=== PATIENT | female | born 1970 | race African-American/Black ===

== ENCOUNTER 2018-04-10 06:49 | Emergency (ER) | payer BC ==
[~2018-04-10] VITALS: Ht 172.7 cm; Wt 77.1 kg
[~2018-04-10 06:49] MED LIST: ALLEGRA-D 12 H1 EACH PO; ANTI-ITCH56 GM TP; CYCLOBENZAPRINE10 MG PO; IBUPROFEN 600600 M1 PO; IBUPROFEN 800800 MG PO; NAPROSYN500 MG PO; NOHOMEMEDICATIONS; NORCO 5-325 TA1 EACH PO; PHENTERMINE H37.5 M1 PO; PRILOSEC 20 MG20 MG PO; PROBIOTIC1 EAC1 PO; VALIUM2 MG PO; ZPAK PO
[2018-04-10 06:51] VITALS: BP 115/68
== END 2018-04-10 07:54 | disposition home or self-care (01) ==
LOC: ER 06:49
DX: S61.304A Unspecified open wound of right ring finger with damage to nail, initial encounter (principal); Z90.710 Acquired absence of both cervix and uterus; W23.1XXA Caught, crushed, jammed, or pinched between stationary objects, initial encounter

== ENCOUNTER 2019-07-07 23:18 | Emergency (ER) | payer BC ==
[~2019-07-07] VITALS: Ht 167.6 cm; Wt 71.7 kg
[2019-07-07] MEDS ORDERED: NOHOMEMEDICATIONS (23:32)
[2019-07-08] MEDS ORDERED: NAPROSYN500 MG PO (00:36)
[2019-07-08] MEDS ORDERED: ULTRAM 50MG TAB50 MG PO (00:36)
[2019-07-08] MEDS ORDERED: MUCINEX D ER 11 EACH PO (00:36)
[2019-07-08 00:37] VITALS: BP 117/75
== END 2019-07-08 00:38 | disposition home or self-care (01) ==
LOC: ER 23:18
DX: J01.90 Acute sinusitis, unspecified (principal); B97.89 Other viral agents as the cause of diseases classified elsewhere; Z90.710 Acquired absence of both cervix and uterus; Z87.891 Personal history of nicotine dependence

== ENCOUNTER → 2021-03-15 | Outpatient (CLI) | payer BC, OTHER ==
[~2021-03-15] MED LIST changes: +MUCINEX D ER 11 EACH PO; +ULTRAM 50MG TAB50 MG PO
== END ==
LOC: ULTRA 01-21 12:04
PROVIDERS: ATTEND Family Medicine
DX: Z12.31 Encounter for screening mammogram for malignant neoplasm of breast (principal); R10.2 Pelvic and perineal pain

== ENCOUNTER 2021-08-10 21:25 | Emergency (ER) | payer BC, OTHER ==
[~2021-08-10] VITALS: Ht 170.2 cm; Wt 86.2 kg
[2021-08-10] MEDS ORDERED: MUPIROCIN22 GM TOP (21:47)
[2021-08-10] MEDS ORDERED: OMEPRAZOLE40 MG PO (21:47)
[2021-08-10] MEDS ORDERED: AMPHETAMINE SAL30 MG PO (21:48)
[2021-08-10] MEDS ORDERED: CYCLOBENZAPRINE5 MG PO (21:48)
[2021-08-10] MEDS ORDERED: VALACYCLOVIR1000 MG PO (22:01)
[2021-08-10 22:33] VITALS: BP 143/80
== END 2021-08-10 22:33 | disposition home or self-care (01) ==
LOC: ER 21:25
DX: B02.9 Zoster without complications (principal); K21.9 Gastro-esophageal reflux disease without esophagitis; Z90.710 Acquired absence of both cervix and uterus; Z87.891 Personal history of nicotine dependence; Z79.899 Other long term (current) drug therapy

== ENCOUNTER → 2021-11-01 | Day surgery (SDC) | payer OTHER ==
[~2021-11-01] VITALS: Ht 170.2 cm; Wt 88.5 kg
[~2021-11-01] MED LIST changes: +AMPHETAMINE SAL30 MG PO; +CYCLOBENZAPRINE5 MG PO; +IBUPROFEN 800800 M1 PO; +MUPIROCIN22 GM TOP; +NORCO5 PO; +OMEPRAZOLE40 MG PO; +VALACYCLOVIR1000 MG PO
[2021-11-01 08:00] VITALS: BP 124/76
[2021-11-01 08:15] LABS: HEMATOCRIT 39.5 % (37.0-47.0); HEMOGLOBIN 13.2 gm/dL (12.0-15.0)
--- NOTE | 2021-11-04 10:08 | PATH ---
[facility] [address] [place] [address] PATHOLOGY RPT PROCEDURE Name: TILA BELTRAN Room #: REG [facility]#: [id number] Admission: 11/01/21 Date of : 66 Discharge: Report #: [id number] Path Case #: [id number] [facility] Accession Number: [id number] . 01 Material submitted: . ovary - LEFT TUBE AND OVARY, RIGHT OVARY. Modifiers: bilateral . 01 Clinical history: . LAPAROSCOPIC OOPHORECTOMY LAPAROSCOPIC SALPINGO-OOPHORECTOMY PELVIC PAIN, OVARIAN CYST . 02 Diagnosis: Right ovary, oophorectomy: - Multiple cystic inclusion cysts; negative for atypia and malignancy. . 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 - Multiple cystic inclusion cysts, with associated calcification; negative for atypia and malignancy. 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 (MLK:trent; 11/03/2021) QMS 11/03/2021 1258 Local . 02 Electronically signed: . Fior Bryson MD, Pathologist NPI- [id number] . 01 Gross description: . The specimen is received in formalin, labeled "Tila Beltran, left tube and ovary, right ovary" and consists of a 2 g intact ovary (1.7 x 1.6 x 1.2 cm) which is surfaced with thompson smooth and glistening serosa. Sectioning reveals multiple clear fluid-filled, smooth-walled, simple cysts (ranging from 0.1 cm to 0.9 cm in greatest dimension). The remaining cut surfaces are unremarkable. Also received in the same container is a second intact thompson-pink ovary (11 g, 3.2 x 2.7 x 2.2 cm) with an attached tortuous, fimbriated fallopian tube (2.7 cm in length by 0.5 cm diameter). Sectioning through the second ovary reveals 2 simple, clear fluid filled, smooth-walled cysts (0.4 cm and 2.3 cm in greatest dimension). The remaining parenchyma is unremarkable. Sectioning through the fallopian tube reveals thompson unremarkable cut surfaces. The fimbria displays a thompson nodule (0.2 x 0.2 x 0.2 cm). Dog Daycare Provider sections to include the entirety of the nodule are submitted as follows: A1: Smaller ovary, represented A2: Larger ovary, represented A3: Fallopian tube, represented to include the entirety of the nodule [address] [address] PATHOLOGY RPT PROCEDURE Name: [facility]ILA BELTRAN [id number]: 11/01/21 Date of : 66 Discharge: Report #: [id number] Path Case #: [id number] ([place]; 11/01/2021) DKA/DKA 11/01/2021 [facility] . 02 Pathologist provided ICD-10: D27.0, N94.89, N83.8 . 02 CPT . 737374, 867980 Specimen Comment: A courtesy copy of this report has been sent to [phone], [phone] Specimen Comment: [id number] Specimen Comment: Report sent to / DR JOHNSON Specimen Comment: A duplicate report has been generated due to demographic updates. Performed at: 01 [facility] [address] [id number] MD Jb Finley MD Phone: [phone] Performed at: 02 [facility] [address] [id number] MD Francisco J Pierce MD Phone: [phone]
--- NOTE | 2021-11-06 05:59 | O ---
[facility] [place] [address] OPERATIVE REPORT Name: TAMI FARRIS Room #: REG [facility].#: [id number] Admission: 11/01/21 Attend Phys: Raven Lopez DO Discharge: Date of : 66 Report #: [id number] THIS REPORT FOR: cc: Romain Erickson James A. DO Farris, Kari C. DO ~ DATE OF SERVICE: 11/01/2021 PREOPERATIVE DIAGNOSES: 1. Pelvic pain. 2. Persistent ovarian cyst. POSTOPERATIVE DIAGNOSES: 1. Pelvic pain. 2. Persistent ovarian cyst. OPERATIVE PROCEDURES: Laparoscopic bilateral oophorectomy, left salpingectomy. SURGEON: Raven Lopez DO ANESTHESIA: General. INTRAVENOUS FLUIDS: 500 mL. URINE OUTPUT: Unmeasured. ESTIMATED BLOOD LOSS: Less than 5 mL. COMPLICATIONS: None. PATHOLOGY: Bilateral ovaries and portion of left fallopian tube. DESCRIPTION OF PROCEDURE: The patient was taken to the operating room where general anesthesia was administered and found to be adequate. She had been prepped and draped in the normal sterile fashion in dorsal supine position. A skin incision was made directly beneath the umbilicus with a scalpel and a 5 mm trocar was passed through this incision under direct visualization of laparoscope. No insertional trauma was identified. The patient was placed in Trendelenburg position and a second incision was made through a previous hysterectomy incision above the symphysis pubis. A 5 mm trocar was passed through this incision under direct visualization of the laparoscope. Again, no insertional trauma was identified. A survey of the patient's abdomen and pelvis revealed a cystic-appearing left ovary with a partial tube, a small right ovary and no associated fallopian tube. A third incision was made in the patient's left lower quadrant with a scalpel. A 5 mm trocar was passed through this incision under direct visualization of laparoscope. This was after the [address] [facility] [address] [place] [address] OPERATIVE REPORT Name: TAMI FARRIS Room #: REG [facility].#: [id number] Admission: 11/01/21 Attend Phys: Raven Lopez DO Discharge: Date of : 66 Report #: [id number] trocar was removed from the Pfannenstiel area in the lower midline and it was replaced with a 10 mm trocar after the incision was extended. Again, no insertional trauma was identified from any trocar placement. The patient's right ovary was grasped with an atraumatic grasper. It was retracted medially and using the LigaSure device, the infundibulopelvic ligament was transected. Excellent hemostasis was noted at the pedicle. The ovary was placed in the patient's pelvis. Attention was then turned to the left fallopian tube and ovary. The remnant of the fallopian tube was grasped with an atraumatic grasper, was retracted medially and the left infundibulopelvic ligament was transected with the LigaSure device. This allowed both the fallopian tube and ovary to be free of the pelvic sidewall. Excellent hemostasis was noted at the pedicle. An Endopouch was then placed through the lower incision at the lower trocar and both ovaries and fallopian tube remnant were placed in the Endopouch. They were removed through the abdomen without complication. In the process of removing the ovaries with the Endopouch, the trocar was removed. This was replaced by the Bigg-Milady. A 0 Vicryl was then used to pass through the Bigg-Milady to reapproximate the fascia at the larger trocar site. Excellent hemostasis was noted with reapproximation. All trocars were then removed from the patient's abdomen. The pneumoperitoneum was allowed to escape. The patient was removed from Trendelenburg position. The incisions were reapproximated using 4-0 Vicryl followed by Dermabond. Excellent hemostasis was noted. The patient tolerated the procedure well. Sponge, lap and needle counts were reported as correct. The patient was taken to the recovery room in stable condition. <ELECTRONICALLY SIGNED> By: Raven Lopez DO 11/06/21 0559 [id number] Raven Lopez DO /nt
== END | disposition home or self-care (01) ==
LOC: OR 07-12 14:49
PROVIDERS: ATTEND Obstetrics & Gynecology
DX: R10.2 Pelvic and perineal pain (principal); N83.292 Other ovarian cyst, left side; D27.0 Benign neoplasm of right ovary; N94.89 Other specified conditions associated with female genital organs and menstrual cycle; N83.8 Other noninflammatory disorders of ovary, fallopian tube and broad ligament; K21.9 Gastro-esophageal reflux disease without esophagitis; Z98.890 Other specified postprocedural states; Z20.822 Contact with and (suspected) exposure to COVID-19; Z79.899 Other long term (current) drug therapy; Z87.891 Personal history of nicotine dependence
CPT/HCPCS: 50010; 50101; 50386; 50400; 50555; 52265; 53307; 53312; 54022; 54118; 56525; 56526; 58574; 58586; 58683; 58910; 62110; 62900; 70005